=== PATIENT | female | born 1955 | race Caucasian/White ===

== ENCOUNTER 2020-06-04 17:15 | Emergency (ER) | payer BC ==
[~2020-06-04] VITALS: Ht 165.1 cm; Wt 105.0 kg
[2020-06-04 17:57] VITALS: BP 154/64
[2020-06-04] MEDS ORDERED: PENI500T2 PO (18:13)
== END 2020-06-04 18:18 | disposition home or self-care (01) ==
LOC: ER 17:16
DX: J02.0 Streptococcal pharyngitis (principal); B95.0 Streptococcus, group A, as the cause of diseases classified elsewhere; I10 Essential (primary) hypertension; Z20.828 Contact with and (suspected) exposure to other viral communicable diseases; F32.9 Major depressive disorder, single episode, unspecified; F17.200 Nicotine dependence, unspecified, uncomplicated; Z79.899 Other long term (current) drug therapy
CPT/HCPCS: 36415; 87880; 99284

== ENCOUNTER 2020-10-21 14:18 | Emergency (ER) | payer BC ==
[~2020-10-21] VITALS: Ht 165.1 cm; Wt 96.4 kg
[2020-10-21 14:33] VITALS: BP 187/103
[2020-10-21] MEDS ORDERED: LIDOcaine 1% W/epiNEPHrine 1:100,000 20ml vial SQ ONE (14:40)
[2020-10-21] MEDS ORDERED: HYDR-3965 PO (15:27)
== END 2020-10-21 15:42 | disposition home or self-care (01) ==
LOC: ER 14:18
DX: S90.32XA Contusion of left foot, initial encounter (principal); S90.812A Abrasion, left foot, initial encounter; M79.672 Pain in left foot; I10 Essential (primary) hypertension; F32.9 Major depressive disorder, single episode, unspecified; Z88.8 Allergy status to other drugs, medicaments and biological substances; Z79.899 Other long term (current) drug therapy; X58.XXXA Exposure to other specified factors, initial encounter; Y93.89 Activity, other specified; Y92.89 Other specified places as the place of occurrence of the external cause; Y99.8 Other external cause status
CPT/HCPCS: 73630; 99283

== ENCOUNTER 2024-01-02 14:28 | Emergency (ER) | payer BC, MEDICAID ==
[~2024-01-02] VITALS: Ht 165.1 cm; Wt 103.5 kg
[2024-01-02 14:57] VITALS: BP 183/104; PULSE 100; RESP 20; TEMP 98.4; O2SAT 96
== END 2024-01-02 21:23 | disposition left against medical advice (07) ==
LOC: ER 14:28
DX: M79.89 Other specified soft tissue disorders (principal); Z53.21 Procedure and treatment not carried out due to patient leaving prior to being seen by health care provider